=== PATIENT | male | born 1995 | race Caucasian/White ===

== ENCOUNTER 2019-02-25 22:27 | Emergency (ER) | payer OTHER ==
[~2019-02-25] VITALS: Ht 180.3 cm; Wt 79.4 kg
[~2019-02-25 22:27] MED LIST: AMOCLA500 PO; AZIT250 PO; IBUP800 PO; METPHE10 PO
[2019-02-26] MEDS ORDERED: IBUP800 PO (00:06)
== END 2019-02-26 04:58 | disposition home or self-care (01) ==
LOC: ER 22:27
DX: S90.822A Blister (nonthermal), left foot, initial encounter (principal); S90.821A Blister (nonthermal), right foot, initial encounter; X58.XXXA Exposure to other specified factors, initial encounter; Z59.0 Homelessness; F17.200 Nicotine dependence, unspecified, uncomplicated
CPT/HCPCS: 99282